=== PATIENT | born 1930 | race Caucasian/White ===

== ENCOUNTER 2018-01-08 07:38 | Outpatient (CLI) | payer MEDICARE, BC ==
[2018-01-08] MEDS ORDERED: Sodium Chloride 0.9% 15 ML NEB ONE (07:45)
--- NOTE | 2018-01-08 11:37 | HP ---
DATE OF SERVICE: 01/08/2018 HISTORY OF PRESENT ILLNESS: Mr. Sridhar Buenrostro is a very pleasant 87-year-old gentleman accompan ied by his son who [facility] for evaluation of 2 wounds of the right foot. The valentine anderson's son states that the wound of the right great toe has been present for over 2 months. He stat es that the wound of the right heel has been present for over 1 month. The patient's son is unsure a s to how the wounds again. He states that the wound of the right heel may have begun from movement o f the patient's heel against the sheets overlying the patient's mattress. The patient is presently r eceiving dressing changes for his wounds at [facility]. The patient was referred to the Wound Center by Dr. Fishman on 01/05/2018. PAST MEDICAL HISTORY: 1. Diabetes mellitus. 2. Hypertension. 3. Atrial fibrillation. 4. Benign prostatic hypertrophy. PAST SURGICAL HISTORY: 1. Pacemaker placement. 2. Back surgery. 3. Appendectomy. MEDICATIONS: 1. Colace. 2. Amiodarone. 3. Coreg. 4. Zoloft. 5. Finasteride. 6. Tamsulosin. 7. Lasix. 8. Coumadin. 9. Spironolactone. 10. Methocarbamol. 11. Tylenol. 12. Tramadol. ALLERGIES: No known diagnosed allergies. SOCIAL HISTORY: Negative for tobacco or ETOH use. FAMILY HISTORY: Negative for diabetes mellitus or coronary artery disease. PHYSICAL EXAMINATION: VITAL SIGNS: Temperature 98.4, pulse 65, respirations 20, blood pressure 99/64. Accu-Chek 100. GENERAL: An 87-year-old gentleman lying on table in examination room in no acute distress. HEENT: Normocephalic, atraumatic. NECK: No nuchal rigidity. CHEST: Clear to auscultation. CARDIAC: Regular rate and rhythm. ABDOMEN: Soft. PERINEUM: A penile wound is present which allows visualization of the Roa catheter through the sha ft. No bleeding is associated with the wound. EXTREMITIES: A small ulceration of the right great toe is present which measures approximately 0.4 x 0.3 cm. No purulent drainage is associated with the wound. No erythema of the skin surrounding the wound is present. No maceration of the skin of the periwound is noted. An ulceration of the right heel is present which measures approximately 3.5 x 5.6 cm. Eschar is present within the wound margin s. No purulent drainage is associated with the wound. No cellulitis of the right foot is appreciate d. No maceration of the skin of the periwound is noted. A dorsalis pedis pulse is easily palpable o n the right. No significant edema of the right foot is present on exam today. ASSESSMENT AND PLAN: 1. Right foot wounds as described above. Dressing changes of Medihoney, 4 x 4s and Kerlix will be i nitiated today. These dressing changes are to be performed every other day or alternatively three ti mes per week after cleansing and irrigation at [facility]. Orders will also be transmitted to [facility] for a Heelift boot to provide for offloading of the right heel wound. The patient s tates that Mr. Buenrostro has a followup appointment with Urology, possibly for evaluation for suprapub ic catheter placement. No dressings will be recommended today for the penile wound. 2. Diabetes mellitus. The patient's Accu-Chek in clinic today is 100. The patient's son has been t old that for optimal wound healing, the patient's blood glucoses should remain below 150. 3. Hypertension. 4. Atrial fibrillation. 5. Benign prostatic hypertrophy.
== END 2018-01-08 07:39 | disposition home or self-care (01) ==
LOC: WCC 07:38
PROVIDERS: ATTEND Family Medicine
DX: E11.621 Type 2 diabetes mellitus with foot ulcer (principal); L97.519 Non-pressure chronic ulcer of other part of right foot with unspecified severity; I10 Essential (primary) hypertension; I48.91 Unspecified atrial fibrillation
CPT/HCPCS: 97139; 97602; G0463; 99203